=== PATIENT | male | born 1940 | race Caucasian/White ===

== ENCOUNTER 2017-10-10 11:38 | Observation (INO) | payer MEDICARE ==
[~2017-10-10] VITALS: Ht 175.3 cm; Wt 117.6 kg
[2017-10-10 12:09] LABS: BASOPHILS ABSOLUTE AUTO 0.04 K/mm3 (0.00-0.23); BASOPHILS PERCENT AUTO 0 % (0-2); EOSINOPHILS ABSOLUTE AUTO 0.18 K/mm3 (0.00-0.68); EOSINOPHILS PERCENT AUTO 2 % (0-6); Hematocrit 33.6 % (37.0-53.0); Hemoglobin 11.1 g/dL (13.5-17.5); IMMATURE GRAN ABSOLUTE AUTO 0.03 K/mm3 (0.00-0.10); IMMATURE GRAN PERCENT AUTO 0 % (0-1); LYMPHOCYTES ABSOLUTE AUTO 3.83 K/mm3 (0.84-5.20); LYMPHOCYTES PERCENT AUTO 41 % (21-46); MONOCYTES ABSOLUTE AUTO 1.03 K/mm3 (0.16-1.47); MONOCYTES PERCENT AUTO 11 % (4-13); Mean Corpuscular Volume 103 fL (80-100); Mean Platelet Volume 11.2 fL (9.1-12.4); NEUTROPHILS ABSOLUTE AUTO 4.25 K/mm3 (1.96-9.15); NEUTROPHILS PERCENT AUTO 46 % (41-73); Platelet Count 128 K/mm3 (150-400); RDW Coefficient Variation 13.1 % (11.7-14.2); RDW Standard Deviation 49.2 fL (35.1-46.3); Red Blood Cell Count 3.26 M/mm3 (4.30-5.90); White Blood Cell Count 9.36 K/mm3 (4.00-11.30)
[2017-10-10 12:19] LABS: International Normalized Ratio 2.17; Prothrombin Time Results 21.4 Sec (9.7-11.5)
[2017-10-10 12:26] LABS: Albumin, Blood 3.3 g/dL (3.4-5.0); Albumin/Globulin Ratio 0.9 (0.8-1.8); Bilirubin, Total 0.9 mg/dL (0.1-1.0); Bun/Creatinine Ratio 11.3 (12.0-20.0); Calcium, Blood 7.9 mg/dL (8.5-10.1); Creatinine, Blood 2.04 mg/dL (0.60-1.20); Globulin, Blood 3.7 g/dL (2.2-4.0); Potassium, Blood 4.6 mmol/L (3.5-5.5)
[2017-10-10] MEDS ORDERED: WARF4 PO (15:35)
[2017-10-10] MEDS ORDERED: FURO40 PO (15:37)
[2017-10-10] MEDS ORDERED: ATOR10 PO (15:37)
[2017-10-10] MEDS ORDERED: LEVSOD100 PO (15:38)
[2017-10-10] MEDS ORDERED: POTCHL20ER PO (15:39)
[2017-10-10] MEDS ORDERED: CHOL10002 PO (15:39)
[2017-10-10] MEDS ORDERED: Multivitamin1 EAC1 PO (15:40)
[2017-10-10] MEDS ORDERED: Humalog Mi100 UNIT/5 SC (15:43)
[2017-10-11 05:33] LABS: International Normalized Ratio 1.45; Prothrombin Time Results 14.6 Sec (9.7-11.5)
[2017-10-11] MEDS ORDERED: FURO40 PO (14:28)
[2017-10-11] MEDS ORDERED: CHOL10002 (14:35)
== END 2017-10-11 14:53 | disposition home or self-care (01) ==
LOC: ER 11:38 → MEDS 11:39 → ENPENDDIS 10-11 14:00 → MEDS 10-11 14:53
PROVIDERS: Emergency Medicine; Internal Medicine
DX: S06.6X9A Traumatic subarachnoid hemorrhage with loss of consciousness of unspecified duration, initial encounter (principal); S29.011A Strain of muscle and tendon of front wall of thorax, initial encounter; E11.9 Type 2 diabetes mellitus without complications; I10 Essential (primary) hypertension; E78.5 Hyperlipidemia, unspecified; Z87.891 Personal history of nicotine dependence; Z95.2 Presence of prosthetic heart valve; Z79.01 Long term (current) use of anticoagulants; W18.30XA Fall on same level, unspecified, initial encounter
CPT/HCPCS: 36415; 70450; 71045; 80053; 82947; 85025; 85610; 96365; 99285-25; C9132; G0378